=== PATIENT | male | born 1995 | race Caucasian/White ===

== ENCOUNTER 2018-07-26 13:09 | Emergency (ER) | payer OTHER, MEDICAID ==
[2018-07-26] MEDS ORDERED: NS 1,000 ML IV ONE (13:16)
[2018-07-26] MEDS ORDERED: HYDROmorphONE/DILAUDID 2 MG/ML INJ IVP ONE (13:16)
[2018-07-26] MEDS ORDERED: HYDROmorphONE/DILAUDID 1 MG/ML INJ ONE (13:16)
--- NOTE | 2018-07-26 13:17 | EDPHY ---
H & P Time Seen by Provider: 07/26/18 13:12 HPI/ROS: CHIEF COMPLAINT: Thumb amputation HISTORY OF PRESENT ILLNESS: The patient is a 23-year-old man who was using a miter saw and accidentally cut off his left thumb and palm of his hand. This happened just prior to arrival. He arrived brought by co-worker. He denies other injuries or past medical history. His co-worker has the thumb in a bag. His friend placed his arm and a tourniquet. Severity: Severe Modifying factors: None REVIEW OF SYSTEMS: Constitutional: denies: chills, fever, recent illness, recent injury EENTM: denies: blurred vision, double vision, nose congestion Respiratory: denies: cough, shortness of breath Cardiac: denies: chest pain, irregular heart rate, lightheadedness, palpitations Gastrointestinal/Abdominal: denies: abdominal pain, diarrhea, nausea, vomiting, blood streaked stools Genitourinary: denies: dysuria, frequency, hematuria, pain Musculoskeletal: See HPI Skin: See HPI Neurological: denies: headache, numbness, paresthesia, tingling, dizziness, weakness Hematologic/Lymphatic: denies: blood clots, easy bleeding, easy bruising Immunologic/allergic: denies: HIV/AIDS, transplant 10 systems reviewed and negative except as noted EXAM: GENERAL: Well-appearing, well-nourished and in no acute distress. HEAD: Atraumatic, normocephalic. EYES: Pupils equal round and reactive to light, extraocular movements intact, sclera anicteric, conjunctiva are normal. ENT: TMs normal, nares patent, oropharynx clear without exudates. Moist mucous membranes. NECK: Normal range of motion, supple without lymphadenopathy or JVD. LUNGS: Breath sounds clear to auscultation bilaterally and equal. No wheezes rales or rhonchi. HEART: Regular rate and rhythm without murmurs, rubs or gallops. ABDOMEN: Soft, nontender, normoactive bowel sounds. No guarding, no rebound. No masses appreciated. BACK: No CVA tenderness, no spinal tenderness, step-offs or deformities EXTREMITIES: See diagram NEUROLOGICAL: Cranial nerves II through XII grossly intact. Normal speech, normal gait. 5/5 strength, normal movement in all extremities, normal sensation , normal reflexes PSYCH: Normal mood, normal affect. SKIN: See diagram Source: Patient Exam Limitations: No limitations - Personal History Current Tetanus/Diphtheria Vaccine: Yes - Medical/Surgical History Hx Asthma: No Hx Chronic Respiratory Disease: No Hx Diabetes: No Hx Cardiac Disease: No Hx Renal Disease: No Hx Cirrhosis: No Hx Alcoholism: No Hx HIV/AIDS: No Hx Splenectomy or Spleen Trauma: No - Family History Significant Family History: No pertinent family hx - Social History Smoking Status: Current every day smoker Alcohol Use: Sober Constitutional: Initial Vital Signs Temperature (C) 36.7 C 07/26/18 13:15 Heart Rate 61 07/26/18 13:15 Respiratory Rate 17 07/26/18 13:15 Blood Pressure 141/96 H 07/26/18 13:15 O2 Sat (%) 100 07/26/18 13:15 O2 Delivery Mode Room Air Allergies/Adverse Reactions: sulfamethoxazole [From Bactrim] Allergy (Verified 07/26/18 13:19) trimethoprim [From Bactrim] Allergy (Verified 07/26/18 13:19) Home Medications: Medication Instructions Recorded NK [No Known Home Meds] 07/26/18 ED Images - Extremities Hands Front Left/Right: 1 - Deep laceration involving amputation of the thumb and bony involvement of the 5th finger. Regular laceration across the palm of the hand. Normal flexion of 2nd 3rd and 4th finger. Medical Decision Making - Diagnostics Imaging: Discussed imaging studies w/ frozen food selector Radiologist ED Course/Re-evaluation: Patient's tourniquet has been removed. No significant hemorrhage. The patient has soft tissue injuries across the top of his palm and proximal phalanx of 5th finger. His amputation of the thumb is at the metacarpal phalangeal joint. There is a piece of proximal phalanx left on the x-ray. There is also small fracture to the proximal phalanx of the 5th finger. I spoke with Dr. Martinez from hand surgery at [facility]. She accepts the patient will plan to take him to the OR. The patient's tetanus is up-to-date any is receiving Rocephin. Finger has been placed in gauze and then in a bag and then and ice. He will be transferred emergently to [facility]. Patient's pain is controlled with Dilaudid. 1:45 p.m. patient is being transferred emergently to [facility]. They are taking him now. Differential Diagnosis: Partial list of the Differential diagnosis considered include but were not limited to; thumb amputation, palm laceration, foreign body, finger fracture/ laceration and although unlikely based on the history and physical exam, I also considered assault, infection. - Data Points Laboratory Results: Laboratory Results 07/26/18 13:17 07/26/18 13:17 Medications Given: Discontinued Medications Diphtheria/Tetanus/Acell Pertussis (Boostrix) 0.5 ml IM .ONCE ONE Stop: 07/26/18 13:37 Last Admin: 07/26/18 13:41 Dose: 0.5 ml Hydromorphone HCl (Dilaudid) 2 mg IVP EDNOW ONE Stop: 07/26/18 13:17 Last Admin: 07/26/18 13:20 Dose: 2 mg Sodium Chloride (Ns) 1,000 mls @ 0 mls/hr IV ONCE ONE; Wide Open PRN Reason: Protocol Stop: 07/26/18 13:17 Last Admin: 07/26/18 13:27 Dose: 1,000 mls Ceftriaxone Sodium/Dextrose (Rocephin 1 Gm (Premix)) 50 mls @ 100 mls/hr IV EDNOW ONE PRN Reason: Protocol Stop: 07/26/18 13:49 Last Admin: 07/26/18 13:25 Dose: 50 mls Ondansetron HCl (Zofran) 4 mg IVP EDNOW ONE Stop: 07/26/18 13:43 Last Admin: 07/26/18 13:43 Dose: 4 mg Departure - Departure Disposition: Acute Care Hospital Not [facility] Clinical Impression: Amputation of left thumb Qualifiers: Encounter type: initial encounter Qualified Code(s): S68.012A - 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
[2018-07-26] MEDS ORDERED: cefTRIAXone 1 GM/DEXTROSE 1 GM/50 ML BAG IV ONE (13:18)
[2018-07-26] MEDS ORDERED: ONDANSETRON 4 MG/2 ML VIAL ONE (13:19)
[2018-07-26] MEDS ORDERED: TDAP ADULT 0.5 ML INJ (BOOSTRIX) IM ONE (13:36)
[2018-07-26 13:42] LABS: INR 1.19 (0.83-1.16); PROTIME(PATIENT) 14.6 SEC (12.0-15.0)
[2018-07-26] MEDS ORDERED: ONDANSETRON 4 MG/2 ML VIAL IVP ONE (13:42)
[2018-07-26 13:51] LABS: PLATELET COUNT 218 10^3/uL (150-400)
[2018-07-26 13:57] VITALS: BP 135/86
== END 2018-07-26 13:50 | disposition short-term general hospital (02) ==
DX: S68.012A Complete traumatic metacarpophalangeal amputation of left thumb, initial encounter (principal); W31.2XXA Contact with powered woodworking and forming machines, initial encounter; Y99.0 Civilian activity done for income or pay; Z23 Encounter for immunization
CPT/HCPCS: 96365; G0480; J0696; J1170; J2405